=== PATIENT | female | born 2000 | race Two or more races ===

== ENCOUNTER 2024-03-02 00:01 | Observation (INO) | payer MEDICAID, OTHER ==
[~2024-03-02] VITALS: Ht 167.6 cm; Wt 88.5 kg
== END 2024-03-02 01:22 | disposition home or self-care (01) ==
LOC: LDRP 00:01
PROVIDERS: ADMIT Obstetrics & Gynecology; ATTEND Obstetrics & Gynecology
DX: O09.513 Supervision of elderly primigravida, third trimester (principal); O62.9 Abnormality of forces of labor, unspecified; Z3A.39 39 weeks gestation of pregnancy; Z79.899 Other long term (current) drug therapy; Z98.890 Other specified postprocedural states
CPT/HCPCS: 59025; 76805; 81002; 94760; G0378